=== PATIENT | male | born 1990 | race African-American/Black ===

== ENCOUNTER 2016-08-31 14:10 | Emergency (ER) | payer SELFPAY ==
[~2016-08-31] VITALS: Ht 185.4 cm; Wt 91.0 kg
[2016-08-31 15:07] VITALS: BP 132/74; PULSE 85; RESP 15; TEMP 98.2; O2SAT 96
--- NOTE | 2016-08-31 15:15 | PD ---
HPI . Cold symptoms for 2 days Chief Complaint: ENT Complaint Time Seen by Provider: 14:35 Travel History International Travel<30 days: No Contact w/Intl Traveler<30days: No Traveled to known affect area: No History of Present Illness HPI 25-year-old male with no significant past medical history here complaining of cold symptoms for 2 days. Patient tells me has a sore throat, runny nose, very slight occasional cough. He is requesting treatment. He denies any fever or chills. He denies any other symptoms. History Past Medical Histgory Medical History: Denies Significant Hx Social History Alcohol Use: No Tobacco Use: No Allergies-Medications (Allergen,Severity, Reaction): Coded Allergies: No Known Allergies (Unverified , 08/31/16) Review of Systems General / Constitutional: No: Fever Eyes: No: Visual changes HENT: Positive: Sore Throat, Rhinorrhea, No: Headaches Cardiovascular: No: Chest Pain or Discomfort Respiratory: Positive: Cough, No: Shortness of Breath Gastrointestinal: No: Abdominal Pain Genitourinary: No: Dysuria Musculoskeletal: No: Pain Skin: No Rash Neurologic: No: Weakness Psychiatric: No: Depression Endocrine: No: Polydipsia Hematologic/Lymphatic: No: Easy Bruising Physical Exam Narrative GENERAL: AAO x 3, no acute distress, Well-nourished, well-developed patient. SKIN: Warm and dry. No visible rashes or bruising. HEAD: Normocephalic and atraumatic. EYES: No scleral icterus. No injection or drainage. EOM intact, PERRLA ENT: No nasal drainage noted. Mucous membranes pink. Airway patent. No posterior pharynx erythema, exudates or edema. TMs normal bilaterally. No frontal or maxillary sinus tenderness. NECK: Supple, trachea midline. No JVD. No lymphadenopathy. CARDIOVASCULAR: Regular rate and rhythm without murmurs, gallops, or rubs. RESPIRATORY: Breath sounds equal bilaterally. No accessory muscle use. No rhonchi or rales. GASTROINTESTINAL: Abdomen soft, non-tender, nondistended. EXTREMITIES: No cyanosis or edema. BACK: Nontender without obvious deformity. No CVA tenderness. PSYCH: AAO x 3, normal affect. Data Data Last Documented VS Vital Signs Date Time Temp Pulse Resp B/P Pulse Ox O2 Delivery O2 Flow Rate FiO2 08/31/16 15:07 98.2 85 15 132/74 96 MDM Medical Screen Exam Complete: Yes Emergency Medical Condition: No Differential Diagnosis Viral syndrome, less likely sinusitis, less likely bronchitis, less likely pneumonia Narrative Course 25-year-old male with no significant past medical history here complaining of cold symptoms for 2 days. Patient tells me has a sore throat, runny nose, very slight occasional cough. He is requesting treatment. He denies any fever or chills. He denies any other symptoms. A medical screening exam was performed: At the time of evaluation the presenting medical condition was determined not to be of an emergent nature. The patient was given the option of receiving additional care, but declined. Patient was given options for additional community resources from which to obtain care. The Patient Has Been advised to seek medical attention for their presenting complaint. The patient has been advised to return to the ER at any time if an emergent condition develops. Primary Impression: Encounter for medical screening examination Condition: Stable Evelina Bang Aug 31, 2016 15:15
== END 2016-08-31 15:29 | disposition left against medical advice (07) ==
LOC: NEPB 14:10
DX: J02.9 Acute pharyngitis, unspecified (principal)
CPT/HCPCS: 99281